=== PATIENT | female | born 1985 | race American Indian/Alaskan Native ===

== ENCOUNTER 2016-06-01 15:24 | Emergency (ER) | payer SELFPAY ==
[2016-06-01 15:41] VITALS: BP 138/80
== END 2016-06-01 21:50 | disposition left against medical advice (07) ==
LOC: ED 15:24
DX: J02.9 Acute pharyngitis, unspecified (principal); Z53.21 Procedure and treatment not carried out due to patient leaving prior to being seen by health care provider